=== PATIENT | male | born 1955 | race Caucasian/White ===

== ENCOUNTER → 2020-11-16 10:02 | Outpatient (CLI) | payer BC, SELFPAY ==
--- NOTE | 2020-11-16 12:04 | PM.TREADMILL ---
Cardiac Stress Test Report Referral & Results Date Patient Seen: 11/16/20 Time Patient Seen: 12:04 Requesting provider: Pa Schwartz Indication: Ventricular Tachycardia Rest ECG: Atrial fibrillation with a controlled ventricular rate of 78 BPM Procedure Note: Standard Nahid protocol, 6:01 mins; 6.9 METS Reduced exercise capacity, OG +23% Normal hemodynamic response to exercise No chest pain or anginal symptoms. Dyspnea with elevated heart rate at peak exercise. T wave inversion in II, III, aVF, V5-V6 at peak exercise Test stopped due to accelerated heart rate of 192 and dyspnea; symptoms improved less than 2 mins into recovery Frequent PVCs Impression: Equivocal exercise stress test Nuclear images pending Please note: Actual ECG tracings can be found in the PACS system.
--- NOTE | 2020-11-17 19:23 | DI.NM.S_ITS ---
DATE OF SERVICE: 11/16/2020 PROCEDURE: Exercise perfusion study. INDICATIONS: Atrial fibrillation, hyperlipidemia. RADIOPHARMACEUTICAL: 26.6 millicurie technetium-99m Myoview IV was injected at stress and 26.4 millicurie technetium-99m Myoview IV was injected at rest. CARDIAC STRESS: The patient underwent exercise perfusion study under the supervision of an attending staff. CARDIAC STRESS: The patient walked on Nahid protocol for 6 minutes and 01 seconds, achieved 122 percent of target heart rate. Normal blood pressure response. Baseline blood pressure 118/80 and peak blood pressure 158/90. Baseline rhythm was atrial fibrillation with ventricular rate about 94 beats per minute. During stress, there was enhanced chronotropic response. Maximum heart rate achieved 192 beats per minute with atrial fibrillation with fast ventricular rate and some nonspecific ST-T changes. The patient also has intermittent PVCs without any obvious ventricular tachycardia. [place] shortness of breath during fast ventricular rate without any chest pain. RAW DATA: There is increased subdiaphragmatic activity. GATED STUDY: Stress LV ejection fraction 61 percent without any obvious wall motion abnormalities. Resting end-diastolic 145 mL. TID ratio 0.83, which is within normal limits. Lung/heart ratio 0.41, which is within normal limits. MYOCARDIAL PERFUSION: Stress supine and resting supine ,as well as stress prone images, were compared to each other. Stress supine and resting supine images revealed mild to moderate size, mildly decreased perfusion of inferior wall extending into the inferoapex, which got completely resolved during prone images suggestive of diaphragmatic tissue attenuation artifact. No convincing ischemia or infarction pattern seen on prone images. CONCLUSION: I will call this study likely a normal myocardial perfusion study with evidence of diaphragmatic tissue attenuation artifact, which got improved during stress prone images. The patient has underlying atrial fibrillation. However, during exercise, there was enhanced chronotropic response with fast ventricular rate up to 192 beats per minute with some nonspecific ST-T changes. Left ventricular function preserved. The patient achieved 7 METs of workload and functional aerobic impairment positive 23 percent. Became short of breath during exercise with fast ventricular rate. Pa Vela - ALON/emiliana/lc doc#: [id number]/job#: [id number] dd: 11/17/2020 17:10:00 dt: 11/17/2020 18:15:00 DICTATING MD/COPIES TO: Jason Pena MD COPIES MNE: [email or web address];
== END ==
PROVIDERS: Family Provider Family Medicine; PCP Student in an Organized Health Care Education/Training Program; Referring Provider Student in an Organized Health Care Education/Training Program; Visit Provider Student in an Organized Health Care Education/Training Program
DX: I47.2 Ventricular tachycardia (principal)
CPT/HCPCS: 78452; 93017; A9502